=== PATIENT | female | born 1995 | race Caucasian/White ===

== ENCOUNTER 2016-11-23 07:06 | Emergency (ER) | payer MEDICAID, OTHER ==
[~2016-11-23] VITALS: Ht 154.9 cm; Wt 69.4 kg
[2016-11-23 07:34] LABS: BILIRUBIN,URINE NEGATIVE (NEGATIVE); KETONES,URINE NEGATIVE (NEGATIVE); LEUKOCYTE ESTERASE ,URINE 2+ (NEGATIVE); NITRITE,URINE NEGATIVE (NEGATIVE); PH,URINE 6.5 (5-9); PROTEIN,URINE 1+ (NEGATIVE); UROBILINOGEN,URINE NORMAL (NORMAL)
[2016-11-23 07:56] LABS: SQUAMOUS EPITHELIAL CELL,UR 0-2 /HPF; WBC,URINE 25-50 /HPF
--- NOTE | 2016-11-23 08:13 | ED GU-Female ---
General Chief Complaint: Abdominal/GI Problems Stated Complaint: ABDOMINAL AND LOWER BACK PAIN Nursing Triage Note: C/O abdominal pain. Pt thought she was coming down with a UTI and took Azo without relief. Abdominal pain persisted with nausea and diarrhea. Pt chilling. Nursing Sepsis Screen: No Definite Risk Source: patient History of Present Illness Time seen by provider: 07:20 Initial Comments C/O UTI SYMPTOMS SINCE LAST NIGHT--BURNING ON URINATION, URGENCY, FREQUENCY-- EVERY 30 MINUTES ALSO HAVING LOWER ABDOMINAL AND BILATERAL FLANK PAIN --LEFT > RIGHT NO FEVER HAD DIARRHEA X 1 LAST PM NAUSEA, THEN VOMITED X 1 ON ARRIVAL TO ER TOOK OTC AZO AT MIDNIGHT, SYMPTOMS HAVE WORSENED SINCE THEN HAS HISTORY OF FREQUENT UTI'S AND LAST ONE WAS FEBRUARY 2016--"KIDNEY INFECTION THAT TIME" --NO HOSPITALIZATIONS FOR UTI'S LMP 11/14-11/20--NORMAL. NO CONTROL PCP: NONE--"JUST MOVED HERE FROM [place]" IN JULY OF THIS YEAR Allergies and Home Medications Allergies Coded Allergies: Sulfa (Sulfonamide Antibiotics) (Verified Allergy, Unknown, 11/23/16) Home Medications Ciprofloxacin HCl 500 Mg Tablet, 500 MG PO BID, #20 Prescribed by: YANETH MUSA on 11/23/16 0815 Naproxen 500 Mg Tablet, 500 MG PO BID, #20 Prescribed by: YANETH MUSA on 11/23/16 0815 Ondansetron 4 Mg Tab.rapdis, 4 MG PO Q4H, #10 Prescribed by: YANETH MUSA on 11/23/16 0815 Phenazopyridine HCl 200 Mg Tablet, 1 TAB PO TID, #15 Prescribed by: YANETH MUSA on 11/23/16 0815 Constitutional: no symptoms reported, No chills, No diaphoresis, No dizziness, No fever EENTM: no symptoms reported Respiratory: no symptoms reported Cardiovascular: no symptoms reported Gastrointestinal: see HPI, abdominal pain, diarrhea, nausea, vomiting Genitourinary: see HPI, burning, dysuria, frequency, flank pain, denies hematuria, denies incontinence, pain, urgency : No LMP: Nov 14, 2016 Musculoskeletal: see HPI, back pain Skin: no symptoms reported Psychiatric/Neurological: No Symptoms Reported Endocrine: No Symptoms Reported Hematologic/Lymphatic: No Symptoms Reported Past Mrniypi-Smzovq-Pshfhh Hx Patient Social History Alcohol Use: Occasionally Uses Recreational Drug Use: Yes (THC) Smoking Status: Current Everyday Smoker (1/2 PPD) Type Used: Cigarettes Recent Foreign Travel: No Contact w/Someone Who Travel: No Recent Infectious Disease Expo: No Surgeries HX Surgeries: Yes (BMT'S ) Surgeries: Ear Surgery Respiratory Hx Respiratory Disorders: No Cardiovascular Hx Cardiac Disorders: No Neurological Hx Neurological Disorders: No Reproductive System : No Hx Reproductive Disorders: No Female Reproductive Disorders: Denies Genitourinary Hx Genitourinary Disorders: Yes Genitourinary Disorders: Kidney Infection, Bladder Infection, UTI-Chronic Gastrointestinal Hx Gastrointestinal Disorders: No Musculoskeletal Hx Musculoskeletal Disorders: No Endocrine Hx Endocrine Disorders: No HEENT HX ENT Disorders: Yes (BMT'S CHILD) HEENT Disorders: Chronic Ear Infection Cancer Hx Cancer: No Psychosocial Hx Psychiatric Problems: No Integumentary HX Skin/Integumentary Disorder: No Blood Transfusions Hx Blood Disorders: No Physical Exam Vital Signs Vital Sign - Last 12Hours 11/23/16 07:37 Temp 99.2 Pulse 88 Resp 16 B/P (MAP) 123/83 O2 Delivery Room Air Capillary Refill : Less Than 3 Seconds General Appearance: WD/WN, no apparent distress (BUT TEARFUL) HEENT: PERRL/EOMI, other (EXTENSIVE DENTAL DECAY--ALL TEETH DECAYED DOWN TO GUMS) Neck: non-tender, full range of motion, supple, normal inspection Cardiovascular: regular rate, rhythm, no murmur Respiratory: normal breath sounds, no respiratory distress, no accessory muscle use Gastrointestinal: normal bowel sounds, soft, no organomegaly, no pulsatile mass , No distended, No guarding, No rebound, tenderness (DIFFUSE LOWER ABDOMEN AND BILATERAL FLANK TENDENESS), No hernia, No mass Back: CVA tenderness (R), CVA tenderness (L) Extremities: normal inspection, no pedal edema, no calf tenderness, normal capillary refill 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, no motor/sensory deficits, alert, oriented x 3 Skin: normal color, warm/dry Progress/Results/Core Measures Results/Orders Lab Results Laboratory Tests Test 11/23/16 07:20 Range/Units Urine Color YELLOW Urine Clarity CLEAR Urine pH 6.5 5-9 Urine Specific [place] 1.010 L 1.016-1.022 Urine Protein 1+ H NEGATIVE Urine Glucose (UA) NEGATIVE NEGATIVE Urine Ketones NEGATIVE NEGATIVE Urine Nitrite NEGATIVE NEGATIVE Urine Bilirubin NEGATIVE NEGATIVE Urine Urobilinogen NORMAL NORMAL MG/DL Urine Leukocyte Esterase 2+ H NEGATIVE Urine RBC (Auto) 3+ H NEGATIVE Urine RBC NONE /HPF Urine WBC 25-50 H /HPF Urine Squamous Epithelial Cells 0-2 /HPF Urine Crystals NONE /LPF Urine Bacteria TRACE /HPF Urine Casts NONE /LPF Urine Mucus NEGATIVE /LPF Urine Culture Indicated YES Urine Test NEGATIVE NEGATIVE My Orders Orders - YANETH MUSA DO Urine Bedside (11/23/16 07:24) Ua Culture If Indicated (11/23/16 07:24) Hcg,Qualitative Urine (11/23/16 07:36) Urine Culture (11/23/16 07:20) Drug Screen Stat (Urine) (11/23/16 08:03) Ketorolac Injection (Toradol Injection) (11/23/16 08:15) Ceftriaxone Injection (Rocephin Injectio (11/23/16 08:15) Lidocaine 1% Injection (Xylocaine 1% Inj (11/23/16 08:15) Medications Given in ED Current Medications Medications Dose Ordered Sig/Carlos Route Start Time Stop Time Status Last Admin Dose Admin Ceftriaxone Sodium 1,000 mg ONCE ONCE IM 11/23/16 08:15 11/23/16 08:16 DC 11/23/16 08:16 1,000 MG Ketorolac Tromethamine 60 mg ONCE ONCE IM 11/23/16 08:15 11/23/16 08:16 DC 11/23/16 08:15 60 MG Lidocaine HCl 2.1 ml ONCE ONCE INJ 11/23/16 08:15 11/23/16 08:16 DC 11/23/16 08:16 2.1 ML Vital Signs/I&O Vital Sign - Last 12Hours 11/23/16 11/23/16 11/23/16 11/23/16 07:37 08:15 08:16 08:16 Temp 99.2 99.2 99.2 99.2 Pulse 88 Resp 16 B/P (MAP) 123/83 O2 Delivery Room Air Blood Pressure Mean: 96 Departure Impression Impression: Primary Impression: Urinary tract infection Disposition: 01 HOME, SELF-CARE Condition: Stable Departure-Patient Inst. Referrals: NO,LOCAL PHYSICIAN (PCP) Primary Care Physician Patient Instructions: Urinary Tract Infection, Adult (DC) Add. Discharge Instructions: LOTS OF CLEAR LIQUIDS--NO COFFEE, POP OR TEA TYLENOL NEEDED FOR PAIN FOLLOW UP WITH DRLuis OF CHOICE IN 2-3 DAYS IF NO BETTER, RETURN TO ER IF WORSE All discharge instructions reviewed with patient and/or family. Voiced understanding. Scripts Ondansetron (Zofran Odt) 4 Mg Tab.rapdis 4 MG PO Q4H for Nausea/Vomiting, #10 TAB Prov: YANETH MUSA DO 11/23/16 Naproxen (Naproxen) 500 Mg Tablet 500 MG PO BID, #20 TAB Prov: YANETH MUSA DO 11/23/16 Phenazopyridine HCl (Pyridium) 200 Mg Tablet 1 TAB PO TID for BLADDER DISCOMFORT, #15 TAB Prov: YANETH MUSA DO 11/23/16 Ciprofloxacin HCl (Cipro) 500 Mg Tablet 500 MG PO BID, #20 TAB Prov: YANETH MUSA DO 11/23/16 Work/School Note: Local Medical Staff Listing YANETH MUSA DO Nov 23, 2016 08:13
[2016-11-23] MEDS ORDERED: ONDA4TAB8 PO (08:15)
[2016-11-23] MEDS ORDERED: CIPR-225 PO (08:15)
[2016-11-23] MEDS ORDERED: NAPR500T3 PO (08:15)
[2016-11-23] MEDS ORDERED: LIDOCAINE 1% INJ 20 ML (XYLOCAINE) VIAL INJ ONE (08:15)
[2016-11-23] MEDS ORDERED: PHEN-640 PO (08:15)
[2016-11-23] MEDS ORDERED: cefTRIAXone 1 GM (ROCEPHIN) VIAL IM ONE (08:15)
[2016-11-23] MEDS ORDERED: KETOROLAC 60 MG/2 ML VIAL IM ONE (08:15)
[2016-11-23 08:31] VITALS: BP 122/80
== END 2016-11-23 08:31 | disposition home or self-care (01) ==
LOC: ER 07:09
DX: N39.0 Urinary tract infection, site not specified (principal); F17.210 Nicotine dependence, cigarettes, uncomplicated; Z98.890 Other specified postprocedural states
CPT/HCPCS: 80306; 81000; 84703; 87088; 96372; 99284